=== PATIENT | female | born 1970 | race African-American/Black ===

== ENCOUNTER 2025-09-30 18:15 | Emergency (ER) | payer OTHER ==
[~2025-09-30] VITALS: Ht 167.6 cm; Wt 77.6 kg
[2025-09-30] MEDS ORDERED: CEFTRIAXONE 1GM BAG (ER ONLY) 50 ML IV ONE (19:36)
[2025-09-30] MEDS ORDERED: dexaMETHasone SOD PHOSPHATE 1 ML ONE (19:37)
[2025-09-30] MEDS: CEFTRIAXONE 1 G in IV D5W 50 ML IV ONE (19:58)
[2025-09-30] MEDS: dexaMETHasone SOD PHOSPHATE 10 MG/ML VIAL IV ONE (19:58)
[2025-09-30 20:02] LABS: PLATELET COUNT (AUTO) 278 K/uL (150-450); RED BLOOD CELL COUNT(AUTO) 4.08 MIL/uL (4.0-5.2); RED CELL DISTRIBUTION WIDTH 15.3 % (11.5-15.0); WHITE BLOOD COUNT (AUTO) 6.7 K/uL (4.3-11.0)
[2025-09-30 20:08] LABS: CALCIUM, SERUM 9.1 mg/dL (8.5-10.1); CREATININE 0.7 mg/dL (0.6-1.3); SODIUM SERUM 142.0 mmol/L (136-145); UREA NITROGEN, BLOOD 22.0 mg/dL (7-18)
[2025-09-30] MEDS ORDERED: IBUP-1490 PO (21:49)
[2025-09-30] MEDS ORDERED: AMOX500C2 PO (21:49)
[2025-09-30 22:02] VITALS: BP 133/74; TEMP 98.1; O2SAT 98
== END 2025-09-30 22:02 | disposition home or self-care (01) ==
LOC: ER 18:20
DX: J03.90 Acute tonsillitis, unspecified (principal); G43.909 Migraine, unspecified, not intractable, without status migrainosus; E11.9 Type 2 diabetes mellitus without complications
CPT/HCPCS: 99284; 96365; 96375; 85025; 80048; 36415; J1100; J1200; J0696 ×2; J7060